=== PATIENT | male | born 1955 | race Caucasian/White ===

== ENCOUNTER 2018-09-20 09:46 | Emergency (ER) | payer SELFPAY ==
[~2018-09-20] VITALS: Ht 180.3 cm; Wt 114.3 kg
[~2018-09-20 09:46] MED LIST: AMLODIPINE BESYL5 MG PO; FUROSEMIDE40 MG PO; POTASSIUM CHLO20 MEQ PO
[2018-09-20] MEDS ORDERED: CENTRUM ULTRA1 EAC1 PO (10:15)
[2018-09-20] MEDS ORDERED: OMEPRAZOLE40 MG PO (10:15)
[2018-09-20] MEDS ORDERED: ALLEGRA ALLERG180 MG PO (10:15)
[2018-09-20] MEDS ORDERED: LEVOTHYROXINE50 MCG PO (10:15)
--- NOTE | 2018-09-20 10:23 | NUR ---
PATIENT BACK FROM X-RAY. RECEIVED REPORT FROM RUBY Xavier
--- NOTE | 2018-09-20 10:45 | Diagnostic Imaging Report ---
Examination: Single AP view of the chest. COMPARISON: None. INDICATION: Dislocated shoulder, fall DISCUSSION: Lung volumes are low with linear opacities in the lung bases compatible with subsegmental atelectasis. No consolidation or sizable pleural effusion. Cardiomediastinal contour notable for a middle-posterior mediastinal lesion within air-fluid level compatible with hiatal hernia. Normal heart size. No pulmonary edema. No acute osseous abnormality. IMPRESSION: Low lung volumes with subsegmental atelectasis in the bases. Large hiatal hernia. Signed by: Dr. Bowen Serna M.D. on 09/20/2018 10:42 AM
--- NOTE | 2018-09-20 10:48 | Diagnostic Imaging Report ---
Exam: Left shoulder 3 views History: Fall, left shoulder pain Comparison: None. Findings: There is an acute, mildly displaced transverse fracture of the surgical neck of the left humerus with approximately 1 cm impaction. The humeral head projects appropriately over the glenoid on the transscapular radiograph. No additional displaced fracture. Soft tissue swelling of the left shoulder. Impression: Acute, transverse mildly displaced and impacted fracture of the surgical neck of the left humerus. Signed by: Dr. Bowen Serna M.D. on 09/20/2018 10:45 AM
--- NOTE | 2018-09-20 10:50 | NUR ---
RADIOLOGY CALLED FOR DISC
[2018-09-20] MEDS ORDERED: ONDANSETRON HCL INJ 2MG/ML 2ML 2 MG/ML VIAL IV ONE (11:00)
[2018-09-20] MEDS ORDERED: MORPHINE SULFATE INJ 4 MG/ML INJ 1ML IV ONE (11:00)
[2018-09-20] MEDS ORDERED: KETOROLAC TROMETHAMINE 30 MG/ML VIAL IV ONE (11:00)
== END 2018-09-20 12:31 | disposition home or self-care (01) ==
LOC: ER 09:46
DX: S42.292A Other displaced fracture of upper end of left humerus, initial encounter for closed fracture (principal); W01.0XXA Fall on same level from slipping, tripping and stumbling without subsequent striking against object, initial encounter; Y93.01 Activity, walking, marching and hiking; I10 Essential (primary) hypertension; E03.9 Hypothyroidism, unspecified; K21.9 Gastro-esophageal reflux disease without esophagitis; Z83.3 Family history of diabetes mellitus; Z82.49 Family history of ischemic heart disease and other diseases of the circulatory system
CPT/HCPCS: 71045; 73030; 99284; J1885; J2270; J2405